=== PATIENT | female | born 1945 | race Caucasian/White ===

== ENCOUNTER → 2018-04-19 | Outpatient (CLI) | payer MEDICARE | END | disposition home or self-care (01) | LOC: RAH 13:49 | PROVIDERS: ATTEND Orthopaedic Surgery | DX: S42.202A Unspecified fracture of upper end of left humerus, initial encounter for closed fracture (principal); Z96.612 Presence of left artificial shoulder joint; X58.XXXA Exposure to other specified factors, initial encounter; Y93.89 Activity, other specified; Y92.89 Other specified places as the place of occurrence of the external cause; Y99.8 Other external cause status | CPT/HCPCS: 73200 ==

== ENCOUNTER → 2018-04-25 | Outpatient (CLI) | payer MEDICARE | END | disposition home or self-care (01) | LOC: RAH 11:22 | PROVIDERS: ATTEND Internal Medicine Critical Care Medicine | DX: M85.88 Other specified disorders of bone density and structure, other site (principal); M41.84 Other forms of scoliosis, thoracic region; M47.814 Spondylosis without myelopathy or radiculopathy, thoracic region | CPT/HCPCS: 71046 ==

== ENCOUNTER 2018-05-15 14:00 | Inpatient (IN) | payer MEDICARE ==
[~2018-05-15] VITALS: Ht 170.2 cm; Wt 112.5 kg
[2018-05-15 14:40] VITALS: BP 141/73
[2018-05-15 15:11] LABS: APPEARANCE,URINE Clear (CLEAR); BILIRUBIN,URINE Negative (NEGATIVE); COLOR,URINE Yellow (YELLOW); GLUCOSE, URINE (UA) Negative (NEGATIVE); KETONES,URINE Negative (NEGATIVE); LEUKOCYTE ESTERASE ,URINE Trace (NEGATIVE); NITRATE,URINE Negative (NEGATIVE); OCCULT BLOOD,URINE Negative (NEGATIVE); PH,URINE 5.5 (5.0-8.0); PROTEIN,URINE Negative (NEGATIVE); UROBILINOGEN,URINE 0.2 mg/dL (0.2-1.0)
[2018-05-15 15:12] LABS: CREATININE 0.9 mg/dL (0.5-1.5); POTASSIUM 3.9 mmol/L (3.5-5.1)
[2018-05-15 15:31] LABS: BACTERIA,URINE Rare /HPF (None Seen); RBC,URINE None Seen /HPF (0-1); SQUAMOUS EPITHELIAL CELL,UR 0-2 /HPF (0-2); WBC,URINE 0-1 /HPF (0-1)
[2018-05-15] MEDS ORDERED: FLUT15.88 NS (15:46)
[2018-05-15] MEDS ORDERED: CALC-1038 PO (15:46)
[2018-05-15] MEDS ORDERED: HYDR-4060 PO (15:46)
[2018-05-15] MEDS ORDERED: GINK30CA3 PO (15:46)
[2018-05-15] MEDS ORDERED: SELE200T27 PO (15:46)
[2018-05-15] MEDS ORDERED: PLAN450T PO (15:46)
[2018-05-15] MEDS ORDERED: MULT1TAB70 PO (15:46)
[2018-05-15] MEDS ORDERED: LACT1CAP70 PO (15:46)
[2018-05-15] MEDS ORDERED: ACET-66 PO (15:46)
[2018-05-15] MEDS ORDERED: LEVO75 PO (15:46)
[2018-05-15] MEDS ORDERED: GLUC-145 PO (15:46)
[2018-05-15] MEDS ORDERED: DICL2100G TP (15:46)
[2018-05-15] MEDS ORDERED: OMEP20CA10 PO (15:46)
--- NOTE | 2018-05-15 16:52 | NUR ---
UA REPORTED ABNORMAL UA TO DR. MICHEL. NO ORDERS RECEIVED. PROCEED WITH PLANNED PROCEDURE.
[2018-05-16] VITALS (21 sets, daily range): BP systolic 107–155; BP diastolic 56–83
[2018-05-16] MEDS ORDERED: CEFAZOLIN SODIUM 1 GM VIAL ONE (12:40)
[2018-05-16] MEDS ORDERED: LACTATED RINGERS 1000ML 1,000 ML IV ONE (12:40)
--- NOTE | 2018-05-16 13:12 | NUR ---
POTENTIAL FOR INFECTION: NO SHAVING NEEDED TO LEFT SHOULDER / ARM PER LORENA OTOOLE. WIPED LEFT SHOULDER / ARM WITH JUVENTINO: 2% CHLORHEXIDINE GLUCONATE CLOTH PT PRE-OP SKIN PREP PER LORENA OTOOLE
[2018-05-16] MEDS ORDERED: LIDOCAINE PF 2% 5ML ABBOJECT ONE (15:00)
[2018-05-16] MEDS ORDERED: ONDANSETRON HCL 4 MG/2 ML VIAL ONE (15:00)
[2018-05-16] MEDS ORDERED: DEXAMETHASONE SOD PHOSPHATE 10MG/ML 1ML VIAL ONE (15:00)
[2018-05-16] MEDS ORDERED: SUCCINYLCHOLINE 200MG/10ML SYR ONE (15:00)
[2018-05-16] MEDS ORDERED: FENTANYL CITRATE PF 50 MCG/1 ML 2ML VIAL ONE ×3 (15:01→19:27)
[2018-05-16] MEDS ORDERED: PROPOFOL 10 MG/ML 20ML VIAL IV ONE (15:01)
[2018-05-16] MEDS ORDERED: GLYCOPYRROLATE 1 MG/5 ML SYRINGE ONE (15:01)
[2018-05-16] MEDS ORDERED: NEOSTIGMINE 5MG/5ML SYR IV ONE (15:01)
[2018-05-16] MEDS ORDERED: MIDAZOLAM HCL 1 MG/ML 2ML VIAL ONE (15:02)
[2018-05-16] MEDS ORDERED: ROCURONIUM 10MG/1ML SYR 10 MG/ML ML ONE (15:02)
[2018-05-16] MEDS ORDERED: ROPIVACAINE 0.5% 5MG/ML 30ML IJ ONE (15:06)
[2018-05-16] MEDS ORDERED: CLINDAMYCIN 900 MG/D5% WATER 50 ML IV ONE (15:15)
[2018-05-16] MEDS ORDERED: CLINDAMYCIN PHOSPHATE 150 MG/ML 6ML VIAL ONE (16:10)
[2018-05-16] MEDS ORDERED: TRANEXAMIC ACID 1000MG/10ML IV ONE ×2 (16:10→20:00)
[2018-05-16] MEDS ORDERED: LIDOCAINE HCL-MPF 1% 2ML VIAL IVP PRN (20:00)
[2018-05-16] MEDS ORDERED: TRAMADOL HCL 50 MG TABLET PO PRN (20:00)
[2018-05-16] MEDS ORDERED: POTASSIUM CHLORIDE 20 MEQ ERTAB PO PRN (20:00)
[2018-05-16] MEDS ORDERED: POTASSIUM CHLORIDE 20MEQ/100ML 100 ML IV PRN (20:00)
[2018-05-16] MEDS ORDERED: CALCIUM CARBONATE 500 MG TABLET PO PRN (20:00)
[2018-05-16] MEDS ORDERED: DiphenhydrAMINE HCL 50 MG/ML VIAL IVP PRN (20:00)
[2018-05-16] MEDS ORDERED: POTASSIUM CHLORIDE 10% ELIXIR 20 MEQ/15 ML UDCUP PO PRN (20:00)
[2018-05-16] MEDS ORDERED: TEMAZEPAM 15 MG CAPSULE PO PRN (20:00)
[2018-05-16] MEDS ORDERED: ONDANSETRON HCL 4 MG/2 ML VIAL IVP PRN (20:00)
[2018-05-16] MEDS ORDERED: KETOROLAC TROMETHAMINE 15MG/ML IV PRN (20:00)
[2018-05-16] MEDS ORDERED: FE FUMARATE/FA/MV, MIN COMB#15 1 TAB PO PRN (20:00)
[2018-05-16] MEDS ORDERED: HYDR-4457 PO (20:00)
[2018-05-16] MEDS ORDERED: OXYCODONE HCL 5 MG TAB PO PRN (20:00)
[2018-05-16 20:54] LABS: APPEARANCE BODY FLUID TURBID (CLEAR); COLOR,BODY FLUID RED (LT YELLOW); SPECIMENTYPE,BODY FLUID ASPIRATE
[2018-05-16 20:55] LABS: BODY FLUID RBC 94800 /cu. mm.; BODY FLUID WBC 7 /cu. mm.; TOTAL VOLUME,BODY FLUID 3 mL
[2018-05-16] MEDS: SODIUM CHLORIDE 0.9% 1000ML 1,000 ML IV SCH (21:11)
[2018-05-16] MEDS: PREGABALIN 25 MG CAP PO SCH (21:16)
[2018-05-16] MEDS: ASPIRIN 325 MG TABLET PO SCH (21:16)
[2018-05-16] MEDS: CELECOXIB 200 MG CAP PO SCH (21:16)
[2018-05-16] MEDS: OXYCODONE HCL 5 MG TAB PO PRN (21:17)
[2018-05-16] MEDS: ACETAMINOPHEN EXTRA STRENGTH 500 MG TABLET PO SCH (21:17)
[2018-05-17 00:40] VITALS: BP 129/60
[2018-05-17] MEDS: CLINDAMYCIN 900 MG/D5% WATER 50 ML IVPB SCH ×2 (01:28→08:55)
[2018-05-17] MEDS: ACETAMINOPHEN EXTRA STRENGTH 500 MG TABLET PO SCH ×3 (03:12→19:33)
[2018-05-17 04:33] LABS: HEMATOCRIT 38.9 % (36-48); MEAN CORPUSCULAR VOLUME 82.3 fL (79-99); PLATELET COUNT (AUTO) 208 K/uL (130-400); RED BLOOD CELL COUNT(AUTO) 4.73 MIL/uL (4.00-5.50); RED CELL DISTRIBUTION WIDTH 14.8 % (11.0-15.5); WHITE BLOOD COUNT (AUTO) 7.1 K/uL (4.8-10.8)
[2018-05-17 04:39] VITALS: BP 115/59
[2018-05-17] MEDS: SODIUM CHLORIDE 0.9% 1000ML 1,000 ML IV SCH ×2 (04:50→14:26)
[2018-05-17 04:51] LABS: CREATININE 0.9 mg/dL (0.5-1.5); POTASSIUM 3.8 mmol/L (3.5-5.1)
[2018-05-17] MEDS: LEVOTHYROXINE 75 MCG TABLET PO SCH (06:13)
[2018-05-17 08:33] VITALS: BP 108/61
[2018-05-17] MEDS: OXYCODONE HCL 5 MG TAB PO PRN ×4 (08:54→23:01)
[2018-05-17] MEDS: PREGABALIN 25 MG CAP PO SCH ×2 (08:55→19:32)
[2018-05-17] MEDS: PANTOPRAZOLE SODIUM 40 MG TABLET.DR PO SCH (08:55)
[2018-05-17] MEDS: ASPIRIN 325 MG TABLET PO SCH ×2 (08:55→19:32)
[2018-05-17] MEDS: CELECOXIB 200 MG CAP PO SCH ×2 (08:55→19:32)
[2018-05-17] MEDS: MULTIVITAMIN TABLET PO SCH (08:55)
[2018-05-17] MEDS: CALCIUM CARBONATE 500 MG TABLET PO SCH (08:57)
--- NOTE | 2018-05-17 09:00 | NUR ---
DINORA MET WITH PATIENT AAOX3 S/P L SHOULDER SURGERY, STATES [facility] LIVES W SPOUSE, PHONE NUMBERS UPDATED AND SENT TO REGISTRATION; DAUGHTER FRIEND WILL BE COMING TO C IR[employer] WORK[employer] AND TAKE HOME; PT STATES REC[facility] WOULD LIKE [facility]- ORDERS REVIEWED, [facility] CHOICE SIGNED, REFERRAL SENT WILL FOLLOW NEEDED Addendum: 05/18/18 at 2035 by CLAUDIA CARLSON RN CM Amended: Links added.
[2018-05-17 11:36] VITALS: BP 110/54
[2018-05-17] MEDS: POLYETHYLENE GLYCOL 3350 17 GM POWD.PACK PO SCH (13:03)
--- NOTE | 2018-05-17 13:21 | NUR ---
DR. MICHEL IN TO EXPLAIN PROCEDURE, TREATMENT AND PLAN IN DETAIL TO PATIENT AND FAMILY. QUESTIONS ASKED BY PATIENT WERE ANSWERED BY DR. MICHEL. PT AND FAMILY VERBALIZED UNDERSTANDING.
[2018-05-17] MEDS: FLUTICASONE PROPIONATE 50MCG/SPRAY 16 GM BOTTLE NS SCH ×2 (16:55→19:34)
[2018-05-17 17:24] VITALS: BP 128/68
[2018-05-17 20:49] VITALS: BP 120/71
[2018-05-18] VITALS: BP 148/65
[2018-05-18] MEDS: ACETAMINOPHEN EXTRA STRENGTH 500 MG TABLET PO SCH ×2 (03:48→11:54)
[2018-05-18 04:00] VITALS: BP 147/77
[2018-05-18] MEDS: LEVOTHYROXINE 75 MCG TABLET PO SCH (05:45)
[2018-05-18] MEDS: OXYCODONE HCL 5 MG TAB PO PRN ×2 (05:48→12:53)
[2018-05-18 08:00] VITALS: BP 128/57
[2018-05-18] MEDS: CALCIUM CARBONATE 500 MG TABLET PO SCH (08:37)
[2018-05-18] MEDS: ASPIRIN 325 MG TABLET PO SCH (08:37)
[2018-05-18] MEDS: CELECOXIB 200 MG CAP PO SCH (08:37)
[2018-05-18] MEDS: POLYETHYLENE GLYCOL 3350 17 GM POWD.PACK PO SCH (08:37)
[2018-05-18] MEDS: PANTOPRAZOLE SODIUM 40 MG TABLET.DR PO SCH (08:37)
[2018-05-18] MEDS: MULTIVITAMIN TABLET PO SCH (08:37)
[2018-05-18] MEDS: PREGABALIN 25 MG CAP PO SCH (08:38)
[2018-05-18] MEDS: FLUTICASONE PROPIONATE 50MCG/SPRAY 16 GM BOTTLE NS SCH (08:41)
[2018-05-18 11:47] VITALS: BP 128/69
[2018-05-18 16:32] VITALS: BP 123/56
--- NOTE | 2018-05-18 18:10 | NUR ---
INSTRUCTIONS DISCHARGE INSTRUCTIONS GIVEN TO PATIENT USING TEACH BACK. NEW PRESCRIPTIONS PLACED IN PACKET ALONG WITH ALL PRINTED INFORMATION AND MD INSTRUCTIONS. F/U APPOINTMENT MADE. DRESSING HAS BEEN CHANGED PER MD ORDER WITH HEMOVAC REMOVED. PATIENT TOLERATED WELL. NO QUESTIONS OR CONCERNS VOICED.
--- NOTE | 2018-05-18 18:25 | NUR ---
TRANSPORT PATIENT HAS BEEN TRANSPORTED TO HER PRIVATE VEHICLE VIA WHEELCHAIR BY VALERIO DEAN. ALL PERSONAL BELONGINGS WITH FAMILY. REPORT HAS BEEN CALLED IN TO [facility]. THEY WILL VISIT PATIENT TOMORROW.
[2018-05-19] MEDS ORDERED: BISACODYL 10 MG SUPP.RECT RC PRN (20:00)
== END 2018-05-18 18:23 | disposition home health service (06) | DRG 497 ==
LOC: EDSTATUS 14:00 → DAHIP 05-16 12:06 → 4AH 05-16 20:55
PROVIDERS: ADMIT Orthopaedic Surgery; ATTEND Orthopaedic Surgery
PROC: 0RPK0JZ Removal of Synthetic Substitute from Left Shoulder Joint, Open Approach (ICD-10-PCS; principal; 2018-05-16 17:18)
DX: M25.312 Other instability, left shoulder (principal); E03.9 Hypothyroidism, unspecified; Z96.612 Presence of left artificial shoulder joint; Z96.643 Presence of artificial hip joint, bilateral; Z96.653 Presence of artificial knee joint, bilateral; Z88.5 Allergy status to narcotic agent; Z88.0 Allergy status to penicillin; Z88.8 Allergy status to other drugs, medicaments and biological substances; Z91.041 Radiographic dye allergy status
CPT/HCPCS: 36415; 73020; 80048; 81001; 85027; 85651; 86140; 87070; 87076; 87205; 89051; 93005; 97039; A4218; A4565; G0378; J0330; J0690; J1100; J2001; J2250; J2405; J2704; J2710; J2795; J3010; J3490; J7030; J7120